=== PATIENT | male | born 1985 | race Caucasian/White ===

== ENCOUNTER 2025-04-04 08:39 | Emergency (ER) | payer OTHER ==
[2025-04-04] MEDS ORDERED: Ibuprofen 200 MG TAB ONE (09:28)
[2025-04-04] MEDS ORDERED: Cyclobenzaprine 10 MG TAB ONE (09:55)
[2025-04-04 09:59] LABS: Glucose, Urine (Dipstick) Negative (Negative); Leukocyte Negative (Negative); Protein, Urine (Dipstick) Negative (Neg-Trace); Specific Gravity, Urine 1.015 (1.005-1.030)
== END 2025-04-04 11:03 | disposition home or self-care (01) ==
LOC: NAV ERS 08:39
DX: S30.0XXA Contusion of lower back and pelvis, initial encounter (principal); S20.222A Contusion of left back wall of thorax, initial encounter; R10.A0 Flank pain, unspecified side; W01.198A Fall on same level from slipping, tripping and stumbling with subsequent striking against other object, initial encounter
CPT/HCPCS: 72100; 81001; 99283